=== PATIENT | male | born 1985 | race Caucasian/White ===

== ENCOUNTER 2020-04-23 17:30 | Emergency (ER) | payer OTHER ==
[2020-04-23 17:35] VITALS: BP 117/64; PULSE 56; TEMP 98.9; BMI 36.8
--- NOTE | 2020-04-23 17:35 | PDOC ---
Rapid Medical Evaluation Chief Complaint: Eye Problem Time Seen by Provider: 04/23/20 17:33 Medical Evaluation: Allergies Allergy/AdvReac Type Severity Reaction Status Date / Time No Known Allergies Allergy Verified 06/06/16 08:38 04/23/20 17:33 I have performed a brief in-person evaluation of this patient. 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 mildly injected right conjunctiva. I have ordered the following: nothing The patient will proceed to the ED for further evaluation. Discharge Disposition - Diagnosis Foreign body of right eye Qualifiers: Encounter type: initial encounter Qualified Code(s): T15.91XA - Foreign body on external eye, part unspecified, right eye, initial encounter - Discharge Dispostion Condition at time of disposition: Stable - Referrals - Patient Instructions - Post Discharge Activity
[2020-04-23] MEDS ORDERED: TETRACAINE 0.5% OPHTH SOLN 2 ML BOTTLE OD ONE (18:37)
[2020-04-23] MEDS ORDERED: FLUORESCEIN NA 1 EA STRIP OD ONE (18:37)
[2020-04-23] MEDS ORDERED: FLUORESCEIN NA 1 EA STRIP ONE (18:38)
[2020-04-23] MEDS ORDERED: ERYTHROMYCIN 0.5% OPHTHALMIC OINTMENT 3.5 GM TUBE OD ONE (18:42)
[2020-04-23] MEDS ORDERED: DIPHTH,PERTUSS(ACELL),TET 0.5 ML DISP.SYRIN IM ONE ×2 (18:43→18:47)
[2020-04-23] MEDS ORDERED: ERYTHROMYCIN 0.5% OPHTHALMIC OINTMENT 3.5 GM TUBE ONE (18:44)
--- NOTE | 2020-04-23 19:52 | PDOC ---
History of Present Illness - General Chief Complaint: Eye Problem Stated Complaint: R EYE PAIN Time Seen by Provider: 04/23/20 17:33 History Source: Patient Exam Limitations: No Limitations - History of Present Illness Initial Comments: 04/23/20 19:46 HISTORY OF PRESENT ILLNESS: 34-year-old male presents emergency department for evaluation of foreign body sensation to his right eye. 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 Since then he has had progressive photophobia and persistence foreign body sensation. He denies any visual disturbances. Patient is unsure of his last tetanus shot. No recent travel or sick contacts. PAST MEDICAL HISTORY: Denies past medical history SURGICAL HISTORY: Denies ALLERGIES: No known drug allergies REVIEW OF SYSTEMS General/Constitutional: Denies fever or chills. Denies weakness, weight change. HEENT: See HPI Cardiovascular: Denies chest pain or shortness of breath. Respiratory: Denies cough, wheezing, or hemoptysis. Gastrointestinal: Denies nausea, vomiting, diarrhea or constipation. Denies rectal bleeding. Genitourinary: Denies dysuria, frequency, or change in urination. Musculoskeletal: Denies joint or muscle swelling or pain. Denies neck or back pain. Skin and breasts: Denies rash or easy bruising. Neurologic: Denies headache, vertigo, loss of consciousness, or loss of sensation. Psychiatric: Denies depression or anxiety. Endocrine: Denies increased thirst. Denies abnormal weight change. Hematologic/Lymphatic: Denies anemia, easy bleeding, or history of blood clots. Allergic/Immunologic: Denies hives or skin allergy. Denies latex allergy. PHYSICAL EXAM General Appearance: Well-appearing, appropriately dressed. No apparent dis tress, no intoxication. HEENT: EOMI, PERRLA, normal ENT inspection, normal voice, TMs normal, pharynx normal. No conjunctival pallor. No photophobia, scleral icterus. EYE EXAMINATION: Visual acuity: 20/20 in the left eye, 20/40 in the right eye, near, uncorrected The lid and lashes are normal. Extraocular movements are intact. The conjunctiva is erythematous with scleral injection. No discharge is noted. The corneal surface is normal post tetracaine and fluorescein. Foreign body presents to the anterior cornea at the 7 o'clock position of the iris of the right eye. No rust ring present. There is no abnormal fluorescein uptake. The pupils are equal, round and reactive to light. Past History - Medical History Allergies/Adverse Reactions: Allergies Allergy/AdvReac Type Severity Reaction Status Date / Time No Known Allergies Allergy Verified 04/23/20 17:35 Home Medications: Ambulatory Orders NK [No Known Home Medication] 06/06/16 COPD: No - Psycho-Social/Smoking History Smoking History: Never smoked - Substance Abuse Hx (Audit-C & DAST Scrn) How often the patient has a drink containing alcohol: Never Score: In Men: 4 or > Positive; In Women: 3 or > Positive: 0 Screen Result (Pos requires Nsg. Audit-10AR): Negative *Physical Exam - Vital Signs Last Vital Signs Temp Pulse Resp BP Pulse Ox 98.9 F 56 L 18 117/64 97 04/23/20 17:32 04/23/20 17:32 04/23/20 17:32 04/23/20 17:32 04/23/20 17:32 ED Treatment Course - Medications Given in the ED: ED Medications Discontinued Medications Generic Name Dose Route Start Last Admin Trade Name Freq PRN Reason Stop Dose Admin Diphtheria/Tetanus/Acell Pertussis 0.5 ml 04/23/20 18:43 04/23/20 18:48 Boostrix - IM 04/23/20 18:44 0.5 ml .ONCE ONE Administration Erythromycin 1 applic 04/23/20 18:42 04/23/20 18:46 Erythromycin 0.5% Eye Ointment OD 04/23/20 18:43 1 applic ONCE ONE Administration Fluorescein Sodium 1 ea 04/23/20 18:37 04/23/20 18:46 Fluorets - OD 04/23/20 18:38 1 ea ONCE ONE Administration Tetracaine HCl 1 drop 04/23/20 18:37 04/23/20 18:46 Pontocaine OD 04/23/20 18:38 1 drop ONCE ONE Administration Medical Decision Making - Medical Decision Making 04/23/20 19:50 A/P: 34-year-old male with foreign body present to right cornea Solid foreign body present to the right cornea at the 7 o'clock position Scleral injection present No abnormal fluorescein uptake Attempt to remove foreign body using flushes, cotton tip swab with erythromycin and bevel of an 18-gauge needle proven to be unsuccessful. No additional trauma incurred. Page placed to ophthalmology without return call. Second page placed at 730. Awaiting callback at this time. 04/23/20 20:20 Case has been discussed with Dr. Kemp of ophthalmology who states patient is able to be discharged with erythromycin ointment and can follow-up as an outpatient. 04/23/20 20:24 I discussed the physical exam findings, ancillary test results and final diagnoses with the patient. I answered all of the patient's questions. The patient was satisfied with the care received and felt comfortable with the discharge plan and treatment plan. The patient will call their primary care physician within 24 hours to arrange follow-up and will return to the Emergency Department with any new, persistent or worsening symptoms. Portions of this note have been documented using voice recognition software. As a result, errors may occur in the instructional aide process. Effort has been made to correct all grammatical and instructional aide error, but some may have been missed which may produce sporadic inaccurate instructional aide or nonsensical phrases. Discharge - Discharge Information Problems reviewed: Yes Clinical Impression/Diagnosis: Foreign body of right eye Qualifiers: Encounter type: initial encounter Qualified Code(s): T15.91XA - Foreign body on external eye, part unspecified, right eye, initial encounter Condition: Fair Disposition: HOME - Admission No - Follow up/Referral Referrals: Radha Kemp MD [Staff Physician] - Marty Rasheed MD [Staff Physician] - - Patient Discharge Instructions Additional Instructions: Rest, avoid rubbing eyes Wash hands, use eye drops as directed, wash hands after use May use eye lubricating drops as often as needed erythromycin ointment, one thin film 3 times a day for 5 days Tylenol or ibuprofen for pain relief Followup with ophthalmology tomorrow for thorough exam. 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 Return to emergency department for worsened pain, swelling, vision problems. - Post Discharge Activity
== END 2020-04-23 20:36 | disposition home or self-care (01) ==
LOC: JERFT 17:30
PROC: 3E0234Z Introduction of Serum, Toxoid and Vaccine into Muscle, Percutaneous Approach (ICD-10-PCS; principal; 2020-04-23)
DX: T15.91XA Foreign body on external eye, part unspecified, right eye, initial encounter (principal)
CPT/HCPCS: 90715; 99284-25